=== PATIENT | female | born 1985 | race Caucasian/White ===

== ENCOUNTER 2020-05-11 09:07 | Emergency (ER) | payer MEDICAID ==
[~2020-05-11] VITALS: Ht 165.1 cm; Wt 91.0 kg
[2020-05-11 09:11] VITALS: BP 143/89
--- NOTE | 2020-05-11 09:27 | PHYS DOC ---
Past History Past Medical History: No Pertinent History Past Surgical History: No Surgical History Alcohol Use: None General Adult EDM: Chief Complaint: FOOT INJURY PAIN HPI: HPI: 34-year-old female presented emerge department today with pain in the right bottom of the foot. She had been diagnosed with plantar fasciitis and tried multiple NSAIDs. She reports they did not help her pain. Her pain is worse when she walks. Today while she was working her pain was worse and so she came in for evaluation. She denies any numbness weakness or tingling. The pain is on the bottom of her foot. She denies any pain near bony prominences. She denies any recent traumatic injuries. Review of systems negative for numbness weakness tingling knee pain or ankle pain. All other review of systems negative. ED course: 30-year-old female presenting with pain in the bottom part of her foot. She is tender along the plantar fascia. Nontender along the bony prominences. X-rays ordered and unremarkable. We will discharge the patient home to follow-up with PCP in 1 to 2 days. Physical Exam: PE: Constitutional: Well developed, well nourished, no acute distress, non-toxic appearance. [] HENT: Normocephalic, atraumatic, bilateral external ears normal, oropharynx moist, no oral exudates, nose normal. [] Eyes: PERRLA, EOMI, conjunctiva normal, no discharge. [] Neck: Normal range of motion, no tenderness, supple, no stridor. [] Cardiovascular:Heart rate regular rhythm, no murmur [] Lungs & Thorax: Bilateral breath sounds clear to auscultation [] Abdomen: Bowel sounds normal, soft, no tenderness, no masses, no pulsatile masses. [] Skin: Warm, dry, no erythema, no rash. [] Back: No tenderness, no CVA tenderness. [] Extremities: The patient's right lower extremity is normal in appearance without any deformities or traumatic injuries. No lacerations abrasions or ecchymosis. She has some tenderness along the plantar fascia. Nontender along the bony prominences. Normal range of motion of the ankle. Palpable dorsalis pedis pulse. Normal motor and sensory function of the foot. Nontender knee and leg. Nontender venous system. Nontender calf. Neurologic: Alert and oriented X 3, normal motor function, normal sensory function, no focal deficits noted. [] Psychologic: Affect normal, judgement normal, mood normal. [] EKG: EKG: [] Radiology/Procedures: Radiology/Procedures: [] Heart Score: Risk Factors: Risk Factors: DM, Current or recent (<one month) smoker, HTN, HLP, family history of CAD, obesity. Risk Scores: Score 0 - 3: 2.5% MACE over next 6 weeks - Discharge Home Score 4 - 6: 20.3% MACE over next 6 weeks - Admit for Clinical Observation Score 7 - 10: 72.7% MACE over next 6 weeks - Early Invasive Strategies Course & Med Decision Making: Course & Med Decision Making Pertinent Labs and Imaging studies reviewed. (See chart for details) [] Dragon Disclaimer: Dragon Disclaimer: This electronic medical record was generated, in whole or in part, using a voice recognition dictation system. Departure Departure: Impression: Primary Impression: Right foot pain Disposition: 01 DC HOME SELF CARE/HOMELESS Condition: STABLE Referrals: PCP,NO (PCP) Patient Instructions: Plantar Fasciitis KAYODE PANDYA MD May 11, 2020 09:27
--- NOTE | 2020-05-11 10:31 | RAD ---
XR FOOT_RIGHT 3 VIEWS DATE: 05/11/2020 9:43 AM INDICATION: Reason: right foot pain / Spl. Instructions: / History: COMPARISON: None. FINDINGS: Bones: There is no evidence of acute fracture or dislocation. Plantar calcaneal enthesophyte. Joints: The joint spaces are normal. Miscellaneous: None. IMPRESSION: No evidence of acute fracture. Electronically signed by: Sammy Stern MD (05/11/2020 10:28 AM) [id number]
== END 2020-05-11 10:53 | disposition home or self-care (01) ==
LOC: ER 09:07
DX: M79.671 Pain in right foot (principal)
CPT/HCPCS: 73630; 99283

== ENCOUNTER 2020-12-17 13:25 | Emergency (ER) | payer OTHER, MEDICAID ==
[~2020-12-17] VITALS: Ht 165.1 cm; Wt 95.0 kg
[2020-12-17 13:30] VITALS: BP 131/97
[2020-12-17] MEDS ORDERED: CYCL-331 PO (14:33)
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
[2020-12-17] MEDS ORDERED: KETOROLAC 15 MG/ML VIAL. IM ONE ×2 (14:45→15:00)
[2020-12-17] MEDS ORDERED: CYCLOBENZAPRINE 10 MG TABLET. PO ONE (14:45)
== END 2020-12-17 15:00 | disposition home or self-care (01) ==
LOC: ER 13:25
DX: M54.2 Cervicalgia (principal); Z88.3 Allergy status to other anti-infective agents
CPT/HCPCS: 96372; 99283; J1885